=== PATIENT | male | born 1955 | race Caucasian/White ===

== ENCOUNTER → 2018-08-31 | Outpatient (CLI) | payer MEDICAID ==
[~2018-08-31] MED LIST: No meds per pt.
== END | disposition home or self-care (01) ==
LOC: STAR 10:03
PROVIDERS: ATTEND Student in an Organized Health Care Education/Training Program
DX: Z01.818 Encounter for other preprocedural examination (principal); Z85.51 Personal history of malignant neoplasm of bladder
CPT/HCPCS: 93005

== ENCOUNTER 2018-09-07 05:54 | Day surgery (SDC) | payer MEDICAID ==
[~2018-09-07] VITALS: Ht 167.6 cm; Wt 63.6 kg
[2018-09-07] MEDS ORDERED: LACTATED RINGERS 1,000 ML IV SCH (06:30)
[2018-09-07 06:47] VITALS: BP 104/69
[2018-09-07] MEDS ORDERED: FENTANYL PF 250 MCG/5ML ONE (07:16)
[2018-09-07] MEDS ORDERED: MIDAZOLAM 1 MG/ML, 2ML ONE (07:16)
[2018-09-07] MEDS ORDERED: CEFAZOLIN 1,000 MG ONE (07:28)
[2018-09-07] MEDS ORDERED: ONDANSETRON 2MG/ML, 2ML ONE (07:28)
[2018-09-07] MEDS ORDERED: ROCURONIUM 10 MG/ML,10ML ONE (07:28)
[2018-09-07] MEDS ORDERED: SUCCINYLCHOLINE 20 MG/ML, 10ML ONE (07:28)
[2018-09-07] MEDS ORDERED: DEXAMETHASONE 4 MG/ML, 1ML ONE (07:28)
[2018-09-07] MEDS ORDERED: PROPOFOL 10 MG/ML, 20ML ONE (07:28)
[2018-09-07] MEDS ORDERED: PHENYLEPHRINE 10 MG/ML ONE (07:28)
[2018-09-07] MEDS ORDERED: SUGAMMADEX 200 MG/2 ML IVPush ONE (07:59)
[2018-09-07] MEDS ORDERED: GEMCITABINE HCL IS ONE (08:00)
[2018-09-07] MEDS ORDERED: GEMCITABINE HCL 2,000 MG in SYRINGE 1 EA IS ONE (08:00)
[2018-09-07] MEDS ORDERED: SODIUM CHLORIDE 0.9% IS ONE (08:00)
[2018-09-07] MEDS ORDERED: DIAZEPAM 5 MG/ML, 2ML IVPush PRN (08:30)
[2018-09-07] MEDS ORDERED: LABETALOL 5MG/ML, 20ML IV PRN (08:30)
[2018-09-07] MEDS ORDERED: ACETAMINOPHEN 325 MG TABLET PO PRN (08:30)
[2018-09-07] MEDS ORDERED: OXYcodone 5 MG/5 ML ORAL.SOL UDC PO PRN (08:30)
[2018-09-07] MEDS ORDERED: ALBUTEROL SULFATE 2.5 MG/3 ML NPPB PRN (08:30)
[2018-09-07] MEDS ORDERED: KETOROLAC 30 MG/1 ML IV PRN (08:30)
[2018-09-07] MEDS ORDERED: MEPERIDINE/PF 25MG/0.5ML IVPush PRN (08:30)
[2018-09-07] MEDS ORDERED: HYDROmorphone 2 MG/ML, 1ML IVPush PRN (08:30)
[2018-09-07] MEDS ORDERED: FENTANYL PF 100 MCG/2ML IV PRN (08:30)
[2018-09-07] MEDS ORDERED: hydrALAzine 20 MG/ML, 1ML IV PRN (08:30)
[2018-09-07] MEDS ORDERED: PROMETHAZINE 25 MG/ML, 1ML IV PRN (08:30)
== END 2018-09-07 11:40 | disposition home or self-care (01) ==
LOC: OUT 05:54
PROVIDERS: ATTEND Student in an Organized Health Care Education/Training Program
DX: C67.9 Malignant neoplasm of bladder, unspecified (principal)
CPT/HCPCS: 52235; 88305; J0330; J0690; J1100; J2250; J2370; J2405; J2704; J3010; J7120; J9201